=== PATIENT | female | born 2005 | race Caucasian/White ===

== ENCOUNTER 2024-02-27 03:02 | Emergency (ER) | payer BC, SELFPAY ==
--- NOTE | ~2024-02-27 | XR_ITS ---
EXAMINATION: XR abdomen obstructive series DATE: 02/27/2024 08:24 INDICATION: TECHNIQUE: Supine and upright views of the abdomen. FINDINGS: Bleeding during and after bowel movement. The visualized lung parenchyma is normal.. There is a nonobstructive bowel gas pattern. Gas and stool are seen throughout the colon to the level of the rectum. There is no free air. There is a linear r adiodensity left mid abdomen which may represent a renal stone, although foreign body in the bowel ca nnot be excluded. Consider correlation with CT. IMPRESSION: 1. Linear radiodensity left mid abdomen which may represent a renal stone, although foreign body in the bowel cannot be excluded. Consider correlation with CT.. Reviewed, dictated and finalized at location B. IMPRESSION: 1. Linear radiodensity left mid abdomen which may represent a renal stone, alt yadira foreign body in the bowel cannot be excluded. Consider correlation with C Gavi..
--- NOTE | ~2024-02-27 | CT_ITS ---
EXAMINATION: CT abdomen pelvis wo con DATE: 02/27/2024 09:06 INDICATION: Follow-up radiodensity seen on x-ray. TECHNIQUE: Computed tomography (CT) of the abdomen and pelvis was performed without intravenous contr ast. The dose-length product was 227.32 mGy-cm. Automated exposure control and iterative reconstruction technique were employed. COMPARISON: Obstructive series dated 02/27/2024. FINDINGS: There is a 8 x 4 mm triangular/linear bone density structure in the colon involving the dis jenn transverse colon, axial images 78-80. Consider swallowed tooth or bone. Nonobstructive bowel gas pattern. Lung bases unremarkable. No free air or free fluid. The liver, spleen, pancreas, adrenal glands and kidneys are unremarkable. No hydronephrosis. Gallblad nimisha is present. No acute osseous abnormality. IMPRESSION: 1. 8 x 4 mm triangular/linear bone density mass in the colon involving the distal transverse colon, a xial images 78-80. Consider swallowed tooth or bone. Reviewed, dictated and finalized at location B. IMPRESSION: 1. 8 x 4 mm triangular/linear bone density mass in the colon involving the dist al transverse colon, axial images 78-80. Consider swallowed tooth or bone.
[2024-02-27 03:48] VITALS: BP 118/66; PULSE 71; RESP 12; TEMP 36.8; O2SAT 100
[2024-02-27 07:49] VITALS: BP 128/70; PULSE 85; RESP 18; O2SAT 100
--- NOTE | 2024-02-27 08:11 | ED.GIBLEED ---
HPI - GI Bleed General Chief complaint: GI Bleed Stated complaint: rectum bleeding Time Seen by Provider: 02/27/24 08:11 Source: patient History of Present Illness HPI Narrative: 18 years old female came to the ED with blood per rectum while trying to push hard to pass a hard stool yesterday. Patient is telling me that she have trouble having bowel movements most of her life, maximum 3 bowel movement a week. She denies any fever, chills, nausea, vomiting also complaining of lower back pain. Patient is healthy otherwise and does not take any medications denies history of similar symptoms Related Data Allergies Allergy/AdvReac Type Severity Reaction Status Date / Time No Known Allergies Allergy Verified 02/27/24 07:48 Review of Systems Review of Systems: All systems reviewed & are unremarkable except as noted in HPI and below Exam Narrative: General appearance: Well-developed, well-nourished Skin: Normal color Head: Normocephalic, nontraumatic Eyes: Clear conjunctiva ENT: Oropharynx normal, ears normal, nose normal Neck: Supple, nontender Chest and respiratory: Airway patent, no respiratory distress, no accessory muscle use Heart: Regular rate/rhythm Abdomen: Soft, nontender, no organomegaly, quiet bowel sounds, rectal exam showed no hemorrhoids, no mass, scant pink color on the glove, guaiac positive, no stool in the rectal pouch Vascular: Normal peripheral pulses, normal capillary refill. 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 is normal as tested, no gross motor deficit Course Vital Signs Vital signs: Vital Signs Temperature 36.8 C 02/27/24 03:48 Pulse Rate 71 02/27/24 03:48 Respiratory Rate 12 02/27/24 03:48 Blood Pressure 118/66 02/27/24 03:48 Pulse Oximetry 100 02/27/24 03:48 Oxygen Delivery Room Air 02/27/24 03:48 Temperature 36.8 C 02/27/24 03:48 Pulse Rate 85 02/27/24 07:49 Respiratory Rate 18 02/27/24 07:49 Blood Pressure 128/70 02/27/24 07:49 Pulse Oximetry 100 02/27/24 07:49 Oxygen Delivery Room Air 02/27/24 03:48 MDM - GI Bleed MDM Narrative Medical decision making narrative: Rectal bleeding during defecation of harsh stool Differential diagnosis include scratch of the anal area secondary to hard stool, less likely upper GI bleed. Blood workup today showed no acute abnormalities, Rectal exam guaiac positive OBSTRUCTIVE SERIES SHOWED POSSIBLE FOREIGN BODY VERSUS RENAL STONE CT ABDOMEN AND PELVIS WITHOUT CONTRAST SHOWED SMALL FOREIGN BODY IN THE DISTAL TRANSVERSE COLON 8 MM COULD BE SWELL TO WITH OR BONE My plan to discharge patient on stool softener, and follow-up with pin feather machine operator as needed. Differential Diagnosis Differential diagnosis: Likely other (As above) Medical Records Attestation: I reviewed the patient's medical records. Lab Data Attestation: I reviewed the patient's lab results. 02/27/24 08:15 02/27/24 08:15 Labs: Lab Results 02/27/24 02/27/24 Range/Units 08:15 08:48 WBC 15.8 H (4.5-10.0) K/mm3 RBC 5.58 H (4.2-5.4) M/mm3 Hgb 12.6 (12.0-15.0) g/dL Hct 38.9 (37.0-47.0) % MCV 69.7 L (80-100) fl MCH 22.6 L (26-34) pg MCHC 32.4 (32-36) g/dl RDW 14.3 (11.5-14.5) % Plt Count 283 (150-375) k/mm3 MPV 11.4 H (7.4-10.4) fl Immature Gran % (Auto) 0.4 (0-0.5) % Neut % (Auto) 85.8 H (45.5-73.1) % Lymph % (Auto) 10.4 L (18.3-44.2) % [place] % (Auto) 3.0 (2.6-8.5) % Eos % (Auto) 0.1 (0-4.4) % Baso % (Auto) 0.3 (0.2-1.2) % Lymph # (Auto) 1.64 (0.9-3.2) K/mm3 [place] # (Auto) 0.5 (0.1-0.6) K/
[2024-02-27 08:23] LABS: Basophils Percent Auto 0.3 % (0.2-1.2); Eosinophils Percent Auto 0.1 % (0-4.4); Hematocrit 38.9 % (37.0-47.0); Hemoglobin 12.6 g/dL (12.0-15.0); Immature Granulocyte Absolute 0.06 K/mm3 (0.00-0.031); Immature Granulocyte Percent A 0.4 % (0-0.5); Lymphocytes Absolute Auto 1.64 K/mm3 (0.9-3.2); Lymphocytes Percent Auto 10.4 % (18.3-44.2); Mean Corpuscular HGB Conc 32.4 g/dl (32-36); Mean Corpuscular Hemoglobin 22.6 pg (26-34); Mean Corpuscular Volume 69.7 fl (80-100); Mean Platelet Volume 11.4 fl (7.4-10.4); Monocytes Absolute Auto 0.5 K/mm3 (0.1-0.6); Neutrophils Absolute Auto 13.6 K/mm3 (1.3-6.7); Neutrophils Percent Auto 85.8 % (45.5-73.1); Platelet Count Result 283 k/mm3 (150-375); Red Blood Count 5.58 M/mm3 (4.2-5.4); Red Cell Distribution Width 14.3 % (11.5-14.5); White Blood Count 15.8 K/mm3 (4.5-10.0)
[2024-02-27 08:44] LABS: Alanine Aminotransferase 13 U/L (6-35); Albumin Level 4.8 g/dL (3.7-5.6); Alkaline Phosphatase 57 U/L (45-116); Anion Gap 9 mmol/L (4-12); Aspartate Amino Transferase 26 U/L (14-36); Bilirubin,Total 0.7 mg/dL (0.2-1.3); Blood Urea Nitrogen 16 mg/dL (8-21); Calcium 9.1 mg/dL (8.9-10.7); Carbon Dioxide 25 mmol/L (22-30); Chloride 103 mmol/L (98-107); Estimated CRCL calculation 72 ml/min; Estimated Glomerular Filt Rate > 60; Glucose 91 mg/dL (65-110); Sodium 137 mmol/L (134-143)
[2024-02-27 08:59] LABS: Add Urine Microscopic? NO; Appearance Urine Clear (Clear); Bilirubin Urine Negative (Negative); Blood Urine Negative (Negative); Color Urine Yellow (Yellow); Glucose Urine UA Negative (Negative); Ketones Urine Trace mg/dL (Negative); Leukocyte Esterase Ur Negative LEU/UL (Negative); Nitrate Urine Negative (Negative); Protein Urine Negative (Negative); Specific Grav Ur 1.025 (1.001-1.035); Urobilinogen Urine 0.2 mg/dL (<2.0); pH Urine 5.5 (5.0-9.0)
[2024-02-27 09:00] LABS: Anisocytosis 1+; Hypochromasia 1+; Microcytosis 1+ (NORMAL); Platelet Estimate Adequate (Adequate); Schistocytes None Seen
[2024-02-27 09:15] LABS: INR 1.1
[2024-02-27 09:16] LABS: Partial Thromboplastin Time 34.8 Seconds (22.3-36.8)
[2024-02-28 14:28] LABS: BEDSIDEPREGUCG Negative (Negative)
== END 2024-02-27 09:46 | disposition home or self-care (01) ==
PROVIDERS: Emergency Provider Emergency Medicine
DX: K62.5 Hemorrhage of anus and rectum (principal); K59.00 Constipation, unspecified; T18.4XXA Foreign body in colon, initial encounter; W44.9XXA Unspecified foreign body entering into or through a natural orifice, initial encounter
CPT/HCPCS: 36415; 74019; 74176; 80053; 81003; 81025; 85025; 85610; 85730; 86850; 86900; 86901; 99284